=== PATIENT | female | born 1980 | race Caucasian/White ===

== ENCOUNTER 2016-08-03 08:00 | Outpatient (CLI) | payer MEDICAID | END 2016-08-03 08:01 | disposition home or self-care (01) | DX: D64.9 Anemia, unspecified (principal) ==

== ENCOUNTER 2016-08-12 09:26 | Outpatient (CLI) | payer MEDICAID | END 2016-08-12 09:27 | disposition home or self-care (01) | DX: M79.671 Pain in right foot (principal) ==

== ENCOUNTER 2017-11-11 00:27 | Emergency (ER) | payer MEDICAID, OTHER ==
[2017-11-11] MEDS ORDERED: IPRATROPIUM/ALBUTEROL 3 ML NEB INH STA (00:37)
[2017-11-11] MEDS ORDERED: predniSONE 20 MG TABLET PO STA (01:15)
--- NOTE | 2017-11-11 01:27 | XRAY Report ---
EXAM: CHEST RADIOGRAPHY EXAM DATE: 11/11/2017 01:21 AM. CLINICAL HISTORY: Sob, new onset wheezing. COMPARISON: None. TECHNIQUE: 1 view. FINDINGS: Lungs/Pleura: No focal opacities evident. No pleural effusion. No pneumothorax. Mediastinum: Within exam limitations, the cardiomediastinal contour is normal. Other: None. IMPRESSION: Normal single view chest. [facility] Referring Provider Line: [phone] SITE ID: [id number]
--- NOTE | 2017-11-11 01:27 | XRAY Preliminary Report ---
Exam: XR CHEST 1 VIEW X-RAY IMPRESSION: Normal single view chest. [facility] SITE ID: [id number]
[2017-11-11 01:30] VITALS: BP 115/76
--- NOTE | 2017-11-11 02:05 | ED Physician Documentation ---
PD HPI DYSPNEA - Stated complaint Stated Complaint: SHORTNESS OF BREATH - Chief complaint Chief Complaint: Resp - History obtained from History obtained from: Patient, Family - History of Present Illness Timing - onset: Today Timing - onset during: Rest Timing - details: Gradual onset, Still present Associated symptoms: Cough, Wheezing. No: Fever Similar symptoms before: Has not had sx before Recently seen: Not recently seen - Additional information Additional information: Patient is a 37 year old female who is presenting to the emergency department for shortness of breath and wheezing. patient states that it started earlier this evening and got progressively worse. Patient states that she has had a dander allergy but denies any other known allergies or history of asthma. Review of Systems Constitutional: denies: Fever, Chills Eyes: reports: Reviewed and negative Ears: reports: Reviewed and negative Nose: reports: Reviewed and negative Cardiac: denies: Chest pain / pressure, Palpitations Respiratory: reports: Dyspnea, Wheezing. denies: Hemoptysis GI: denies: Nausea, Vomiting Musculoskeletal: denies: Extremity pain, Extremity swelling Neurologic: denies: Near syncope, Syncope, Headache Immunocompromised: denies: Immunocompromised PD PAST MEDICAL HISTORY - Past Medical History Cardiovascular: None Respiratory: None Neuro: None Musculoskeletal: None - Past Surgical History Past Surgical History: No - Present Medications Home Medications: Ambulatory Orders Medication Instructions Recorded Confirmed Cyclobenzaprine [Flexeril] 10 mg PO TID #20 tablet 12/20/12 Ibuprofen [Motrin] 400 mg PO Q6H #30 tablet 12/20/12 Albuterol Sulf [Ventolin Hfa 2 puffs INH Q4HR PRN #1 inhaler 11/11/17 Inhaler] predniSONE [Prednisone] 40 mg PO DAILY 5 Days tablet 11/11/17 - Allergies Allergies/Adverse Reactions: Allergies Allergy/AdvReac Type Severity Reaction Status Date / Time No Known Drug Allergies Allergy Verified 11/11/17 00:35 - Social History Does the pt smoke?: No Smoking Status: Never smoker Does the pt drink ETOH?: No Does the pt have substance abuse?: No - Immunizations Immunizations are current?: Yes - POLST Patient has POLST: No PD ED PE NORMAL - Vitals Vital signs reviewed: Yes - General General: Alert and oriented X 3 - HEENT HEENT: Atraumatic, Moist mucous membranes - Neck Neck: No JVD - Abdomen Abdomen: Soft - Derm Derm: Normal color, No rash - Extremities Extremities: No deformity, No calf tenderness / cord - Neuro Neuro: Alert and oriented X 3, No motor deficit, Normal speech Eye Opening: Spontaneous PD ED PE EXPANDED - Cardiac Cardiac: Tachy - Respiratory Respiratory: Distress, Labored, Wheezing, Right upper lobe, Right middle lobe, Right lower lobe, Left upper lobe, Left lower lobe Results - Vitals Vitals: Vital Signs - 24 hr 11/11/17 11/11/17 11/11/17 00:33 00:44 01:26 Temperature 36.4 C L Heart Rate 119 H 122 H 138 H Respiratory 24 16 19 Rate Blood Pressure 135/91 H 115/76 O2 Saturation 96 97 Oxygen O2 Source Room air - Rads (name of study) chest x-ray Radiology: Final report received, EMP read contemporaneously (air bronchiograms) PD MEDICAL DECISION MAKING - ED course Complexity details: reviewed old records, re-evaluated patient, considered differential, d/w patient, d/w family ED course: Patient was seen and examined at bedside. Patient had wheezing in multiple mckeon adn mild accessory muscle use. patient was treated with three duonebs and prednisone. chest x-ray was ordered since patient had never had these symptoms before. Patient improved significantly with the medications. Patient had only a very faint wheeze but stated she wanted to go home. patient was educated on using a spacer. Patient required no further work up at this time and was stable for discharge with outpatient follow up. Departure - Departure Disposition: 01 Home, Self Care Clinical Impression: Reactive airway disease with wheezing Condition: Good Instructions: ED Reactive Airway Disease Follow-Up: primary,care provider [Other] - Within 3 Days Prescriptions: Albuterol Sulf [Ventolin Hfa Inhaler] 2 puffs INH Q4HR PRN #1 inhaler PRN Reason: Wheezing predniSONE [Prednisone] 40 mg PO DAILY 5 Days tablet Comments: Your symptoms today were likely a reaction to something you breathed in. It is difficult to say what it was exactly. You will be on steroids for the next 5 days. You have also been prescribed an inhaler and you should keep it with you. You should follow up with your doctor on monday. You should return to the emergency department for new, worsening or uncontrollable symptoms.
== END 2017-11-11 02:18 | disposition home or self-care (01) ==
LOC: ED 00:27
DX: J45.909 Unspecified asthma, uncomplicated (principal)
CPT/HCPCS: 71045; 94640; 94664; 99283; 99284; J7512

== ENCOUNTER 2018-12-22 10:42 | Outpatient (CLI) | payer MEDICAID ==
--- NOTE | 2018-12-22 15:19 | XRAY Report ---
Reason: UNSPECIFIED SUPERFICIAL INJURY OF LESSER TOE Procedure Date: 12/22/2018 Accession Number: [id number] / [id number] Procedure: XR - Toe(s) LT CPT Code: FULL RESULT: EXAM: LEFT TOE RADIOGRAPHY EXAM DATE: 12/22/2018 10:57 AM. CLINICAL HISTORY: UNSPECIFIED SUPERFICIAL INJURY OF LESSER TOE. Struck fifth toe on a recliner base. Distal and lateral pain for the last week. COMPARISON: None. TECHNIQUE: 3 views. FINDINGS: Bones: Normal. No fracture or bone lesion. Joints: Normal. No subluxations. 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 Soft Tissues: There is mild soft tissue swelling of the fifth toe. IMPRESSION: No acute or healing fracture identified. Mild soft tissue swelling is present. [facility]
== END 2018-12-22 10:43 | disposition home or self-care (01) ==
LOC: DI 10:42
PROVIDERS: ATTEND Family Medicine
DX: S90.935A Unspecified superficial injury of left lesser toe(s), initial encounter (principal); M79.9 Soft tissue disorder, unspecified
CPT/HCPCS: 73660

== ENCOUNTER 2019-11-22 12:09 | Outpatient (CLI) | payer MEDICAID ==
--- NOTE | 2019-11-23 10:56 | XRAY Report ---
Reason: LOW BACK PAIN Procedure Date: 11/22/2019 Accession Number: [id number] / [id number] Procedure: WCP - Lumbar Spine 2 View CPT Code: Final Report FULL RESULT: EXAM: LUMBOSACRAL SPINE RADIOGRAPHY EXAM DATE: 11/22/2019 12:09 PM. CLINICAL HISTORY: LOW BACK PAIN. Chronic low back pain. No known injury. COMPARISONS: None. TECHNIQUE: 2 views. FINDINGS: Alignment: Normal. No spondylolisthesis or scoliosis. Bones: Five [id number] lumbar vertebral bodies are present. The 12th ribs are small. No fractures or bone lesions. Disks: Normal. Disk heights are maintained. Facets: No degenerative changes. Sacroiliac Joints: Unremarkable. Soft Tissues: Normal. The visualized bowel gas pattern is normal. IMPRESSION: Normal lumbar spine radiography. [facility]
== END 2019-11-22 12:10 | disposition home or self-care (01) ==
LOC: DI.WCP 12:09
PROVIDERS: ATTEND Family Medicine
DX: M54.5 Low back pain (principal)
CPT/HCPCS: 72100